=== PATIENT | female | born 1995 | race Caucasian/White ===

== ENCOUNTER 2019-11-13 01:25 | Outpatient (CLI) | payer OTHER, SELFPAY ==
[2019-11-13 20:48] LABS: SARS-CoV-2 RNA PCR Positive
== END 2019-11-13 01:26 | disposition home or self-care (01) ==
LOC: ANHCOVIDDT 01:25
PROVIDERS: PCP Emergency Medicine; Visit Provider Internal Medicine Gastroenterology
DX: U07.1 COVID-19 (principal)
CPT/HCPCS: 87635; C9803; U0003

== ENCOUNTER → 2020-06-23 00:09 | Outpatient (CLI) | payer OTHER, SELFPAY ==
[2020-06-23 20:44] LABS: SARS-CoV-2 RNA PCR Negative
== END ==
PROVIDERS: PCP Emergency Medicine; Visit Provider Internal Medicine Gastroenterology
DX: Z01.812 Encounter for preprocedural laboratory examination (principal); Z20.822 Contact with and (suspected) exposure to COVID-19
CPT/HCPCS: C9803; U0003; U0005

== ENCOUNTER 2020-06-26 00:10 | Day surgery (SDC) | payer OTHER, SELFPAY ==
[2020-06-15 13:49] VITALS: BMI 24.9
[2020-06-26 06:55] VITALS: BP 108/67; PULSE 86; RESP 16; TEMP 36.4; O2SAT 97
[2020-06-26] MEDS: LACTATED RINGERS 1,000 ML 150 ML IV CONT (07:06)
--- NOTE | 2020-06-26 08:00 | P.PNAN_ITS ---
Anes - Initial Pre Proc Eval Procedure: Operation Date: 06/26/20 08:00 Proposed Procedures p Esophagogastroduodenoscopy - Salomón Nettles MD Date/Time: 06/26/20 08:00 Surgeon: Salomón Nettles MD Pre Op Diagnosis: eosinophilic esophagitis Patient Data Age: 24 Gender: F Height: 5 ft 5 in Weight: 68.1 kg Last Vital Signs Temp 97.6 F 06/26/20 06:55 Pulse 86 06/26/20 06:55 Resp 16 06/26/20 06:55 BP 108/67 06/26/20 06:55 Pulse Ox 97 06/26/20 06:55 Allergies Allergy/AdvReac Type Severity Reaction Status Date / Time Sulfa (Sulfonamide Allergy Unknown Hives Verified 06/26/20 06:39 Antibiotics) Home Medications Medication Instructions Recorded Confirmed Type etonogestrel [Nexplanon] 1 implant SUBDERMAL ONCE 11/05/19 06/15/20 History pantoprazole 80 mg PO DAILY 11/05/19 06/15/20 History Patient hx anesthesia problems: none Family hx anesthesia problems: none [facility] Past Medical History Medical History (Updated 04/29/20 @ 09:23 by JOSIAH Navarrete) Eosinophilic esophagitis Genital herpes GERD (gastroesophageal reflux disease) Vitamin D deficiency Family History Family History Other Hypertension Social History Social History (Updated 04/29/20 @ 09:00 by Ashley Stallings CMA) Smoking status: Never smoker Alcohol intake: current Drinks per week: 1 Substance use: never Living arrangements: with family Gender identity (if verbalized by the patient): Female Spiritual care concerns: No Anes - Eval Final PreProcedure Day of Procedure 06/26/20 08:00 Patient weight: normal Heart: regular rate and rhythm Lungs: clear to auscultation Airway: Mallampati scale class II Neurological: alert and oriented Last oral intake: >/= 8 hours ASA classification: II Emergent: no Anesthetic plan: proceed Anesthesia type and monitoring: general GIVS and standard monitoring Informed Consent: The patient's anesthetic plan and its attendant risks and benefits were discussed with the patient/family/POA. Questions were solicited and answers provided to the satisfaction of the patient/family/POA.
--- NOTE | 2020-06-26 08:08 | PM.HPGS ---
History of Present Illness History of Present Illness Consent: Risks, benefits, and alternatives have been discussed and questions answered. Patient agrees to proceed with procedure. Chief complaint: eosinophilic esophagitis Narrative: Meghan Hardy is a 24 year old female here for EGD, 3 years ago she was diagnosed with eosinophilic esophagitis by Dr. Lyles. Currently she is on pantoprazole 40 mg b.i.d.. However, she still having issues with breakthrough heartburn and reflux. Also had manometry study that revealed lower esophageal sphincter problems , denies dysphagia Review of Systems Constitutional: Constitutional: Denies headache(s) and Denies weakness Eyes: Eyes: Denies blurry vision ENT: Reports Normal hearing present, Denies headache(s) and Denies neck pain Cardiovascular: Cardiovascular: Denies chest pain and Denies dyspnea Respiratory: Respiratory: Denies dyspnea Gastrointestinal: Gastrointestinal: Reports no additional gastrointestinal complaints Genitourinary: Genitourinary: Denies dysuria Musculoskeletal: Musculoskeletal: Denies neck pain Integumentary/Breasts: Skin/Breast: Denies dry skin Neurologic: Reports Normal hearing present, Denies headache(s) and Denies weakness Psychiatric: Psychiatric: Denies anxiety Endocrine: Endocrine: Denies change in body appearance Hematologic/Lymphatic: Hematologic/Lymphatic: Denies easy bleeding Allergic/Immunologic: Allergic/Immunologic: Denies urticaria PMFSH Past Medical History Medical History (Updated 06/26/20 @ 08:09 by Salomón Nettles MD) Eosinophilic esophagitis Genital herpes GERD (gastroesophageal reflux disease) Vitamin D deficiency Family History Family History Other Hypertension Social History Social History (Updated 04/29/20 @ 09:00 by Ashley Stallings CMA) Smoking status: Never smoker Alcohol intake: current Drinks per week: 1 Substance use: never Living arrangements: with family Gender identity (if verbalized by the patient): Female Spiritual care concerns: No Meds Home Medications and Allergies Home Medications Medication Instructions Recorded Confirmed Type etonogestrel [Nexplanon] 1 implant SUBDERMAL ONCE 11/05/19 06/15/20 History pantoprazole 80 mg PO DAILY 11/05/19 06/15/20 History Allergies Allergy/AdvReac Type Severity Reaction Status Date / Time Sulfa (Sulfonamide Allergy Unknown Hives Verified 06/26/20 06:39 Antibiotics) Vital Signs Vital Signs - 24 hr 06/26/20 06:55 Temperature 97.6 F Pulse Rate 86 Respiratory Rate 16 Blood Pressure 108/67 Pulse Oximetry 97 Exam Const: General: comfortable and no acute distress HENMT: General nose exam: Normal nares present Eyes: General: appearance normal, both eyes and all related structures Neck: Neck: no JVD Resp: Auscultation: clear to auscultation bilaterally Cardio: Rate: regular rate Rhythm: regular rhythm GI: Inspection: non-distended GI Palp: Yes Soft to palpation Skin: General skin exam: normal color Neuro: General: gait normal Speech: normal speech Extrem: General: normal to inspection Psych: Mental Status: mental status grossly normal Assessment and Plan Assessment and plan (1) Eosinophilic esophagitis: Code(s): K20.0 - Eosinophilic esophagitis Status: Acute Assessment and Plan: egd with bx (2) GERD (gastroesophageal reflux disease): Code(s): K21.9 - Gastro-esophageal reflux disease without esophagitis Status: Inactive
[2020-06-26] MEDS: BENZOCAINE (*SP) 60 ML SPRAY CAN (HURRICAINE) 1 SPRAY MUCOUS MEM (08:11)
[2020-06-26 08:21] VITALS: BP 100/63; PULSE 98; RESP 20; O2SAT 100
[2020-06-26 08:31] VITALS: BP 98/53; PULSE 72; RESP 18; O2SAT 100
[2020-06-26 08:41] VITALS: BP 100/64; PULSE 62; RESP 20; O2SAT 100
== END 2020-06-26 08:50 | disposition home or self-care (01) ==
PROVIDERS: PCP Emergency Medicine; Visit Provider Internal Medicine Gastroenterology
PROC: 0DJ08ZZ Inspection of Upper Intestinal Tract, Via Natural or Artificial Opening Endoscopic (ICD-10-PCS; CPT 43235; principal; 2020-06-26 08:00)
DX: K21.9 Gastro-esophageal reflux disease without esophagitis (principal); K44.9 Diaphragmatic hernia without obstruction or gangrene; K29.50 Unspecified chronic gastritis without bleeding
CPT/HCPCS: 43239; 88305; C9803; J2704; J7120; U0003; U0005

== ENCOUNTER → 2022-06-23 08:18 | Outpatient (CLI) | payer OTHER, SELFPAY ==
--- NOTE | ~2022-06-23 | US_ITS ---
EXAMINATION: US OB <= 14 weeks fetus DATE: 06/23/2022 08:39 INDICATION: Gestational dating. . TECHNIQUE: Real-time transabdominal and transvaginal obstetric ultrasound. FINDINGS: No prior studies for comparison. The uterus measures 9.6 x 6.7 x 9.8 cm. There is an intrauterine gestational sac, with pole sebastian ntified. The crown rump length measures 3.05 cm, which correlates with a estimated gestational age o f 10 weeks 0 days. heart tones are identified measuring 168 BPM. The right ovary is normal me asuring 2.3 x 1.7 x 2.4 cm. The left ovary is not visualized. IMPRESSION: 1. SL IUP with an EGA of 10 weeks, 0 days (EDC by current ultrasound of 01/19/2023). Reviewed, dictated and finalized at location L. IMPRESSION: 1. SL IUP with an EGA of 10 weeks, 0 days (EDC by current ultrasound of 023).
== END ==
PROVIDERS: PCP Obstetrics & Gynecology; Visit Provider Obstetrics & Gynecology
DX: Z36.87 Encounter for antenatal screening for uncertain dates (principal)
CPT/HCPCS: 76801